=== PATIENT | female | born 1945 | race Caucasian/White ===

== ENCOUNTER → 2016-08-30 | Outpatient (CLI) | payer MEDICARE, OTHER ==
[~2016-08-30] MED LIST: ACYCLOVIR800 MG PO; ALDACTONE50 M1 PO; AMBIEN10 MG PO; ANASTROZOLE1 MG PO; ASPIRIN E.C. 8181 MG PO; BIOTIN 0.3 MG-21 TAB PO; CYANOCOBAL1000 MCG/1 IM; CYTOMEL 5MC5 MCG/TAB PO; GLUCOPHAGE PO; LEVOTHYROXINE PO; MAGNESIUM100 M1 PO; NORCO 325 MG-51 TA1 PO; VITAMIN D 50,1.25 MG PO; ZOCOR PO
== END ==
LOC: LAB 17:02
DX: I10 Essential (primary) hypertension (principal); E78.2 Mixed hyperlipidemia; E11.9 Type 2 diabetes mellitus without complications; E03.4 Atrophy of thyroid (acquired); E53.8 Deficiency of other specified B group vitamins; K90.89 Other intestinal malabsorption

== ENCOUNTER → 2016-11-07 | Outpatient (CLI) | payer MEDICARE, OTHER ==
[2016-01-12 10:45] VITALS: BP 125/86
== END ==
LOC: RAD 06:50
DX: M25.512 Pain in left shoulder (principal)

== ENCOUNTER → 2016-12-29 | Outpatient (CLI) | payer MEDICARE, OTHER ==
[2016-01-12 10:45] VITALS: BP 125/86
== END ==
LOC: LAB 14:50
DX: E11.9 Type 2 diabetes mellitus without complications (principal); M62.81 Muscle weakness (generalized); M79.604 Pain in right leg; E03.4 Atrophy of thyroid (acquired)

== ENCOUNTER 2017-01-05 16:45 | Emergency (ER) | payer MEDICARE, OTHER ==
[~2017-01-05 16:45] MED LIST changes: -ACYCLOVIR800 MG PO; -MAGNESIUM100 M1 PO; -NORCO 325 MG-51 TA1 PO
[2017-01-05] MEDS ORDERED: MAGNESIUM100 M1 PO (16:59)
[2017-01-05] MEDS ORDERED: ACYCLOVIR800 MG PO (18:01)
[2017-01-05] MEDS ORDERED: NORCO 325 MG-51 TA1 PO (18:01)
[2017-01-05 18:34] VITALS: BP 146/84
== END 2017-01-05 18:30 | disposition home or self-care (01) ==
LOC: ED 16:45
DX: B02.9 Zoster without complications (principal); R51 Headache; E11.9 Type 2 diabetes mellitus without complications; Z79.84 Long term (current) use of oral hypoglycemic drugs; I10 Essential (primary) hypertension; Z85.3 Personal history of malignant neoplasm of breast

== ENCOUNTER → 2017-01-26 | Outpatient (CLI) | payer MEDICARE, OTHER ==
[2017-01-05 18:34] VITALS: BP 146/84
[~2017-01-26] MED LIST changes: +ACYCLOVIR800 MG PO; +MAGNESIUM100 M1 PO; +NORCO 325 MG-51 TA1 PO
== END ==
LOC: LAB 14:01
DX: E03.4 Atrophy of thyroid (acquired) (principal)

== ENCOUNTER → 2017-04-26 | Outpatient (CLI) | payer MEDICARE, OTHER | LOC: RAD 09:00 | DX: M19.012 Primary osteoarthritis, left shoulder (principal); S43.102A Unspecified dislocation of left acromioclavicular joint, initial encounter; M85.812 Other specified disorders of bone density and structure, left shoulder; Z98.890 Other specified postprocedural states ==

== ENCOUNTER → 2017-05-23 | Outpatient (CLI) | payer MEDICARE, OTHER | LOC: LAB 15:08 | DX: E11.9 Type 2 diabetes mellitus without complications (principal) ==

== ENCOUNTER → 2017-10-25 | Outpatient (CLI) | payer MEDICARE, OTHER | LOC: LAB 10:10 | DX: L02.411 Cutaneous abscess of right axilla (principal); Z88.1 Allergy status to other antibiotic agents ==

== ENCOUNTER → 2018-03-19 | Outpatient (CLI) | payer MEDICARE, OTHER ==
[2018-03-19 15:03] LABS: EOS # 0.2 (0.04-0.40); EOS % 2.6 % (1.0-5.0); HEMATOCRIT 38.8 % (37.0-47.0); LYMPH# 2.5 (1.50-4.00); MEAN CELL VOLUME 94 fl (78-100); MEAN CORPUSCULAR HEMOGLOBIN 31 pg (27-31); MEAN CORPUSCULAR HGB CONC 34 g/dL (33-37); MEAN PLATELET VOLUME 9.6 fl (7.4-10.4); MONO # 0.7 (0.20-0.80); NEU # 5.7 (1.40-6.50); PLATELET COUNT 223 K/mm3 (130-400); RED BLOOD COUNT 4.15 M/mm3 (4.10-5.30); RED CELL DISTRIBUTION WIDTH 14.1 % (11.5-14.5); WHITE BLOOD COUNT 9.2 K/mm3 (4.8-10.8)
[2018-03-19 16:01] LABS: URINE APPEARANCE HAZY; URINE BILIRUBIN NEGATIVE (NEGATIVE); URINE BLOOD NEGATIVE (NEGATIVE); URINE COLOR YELLOW; URINE GLUCOSE NEGATIVE (NEGATIVE); URINE KETONE NEGATIVE (NEGATIVE); URINE LEUKOCYTE ESTERASE 1+ (NEGATIVE); URINE NITRATE NEGATIVE (NEGATIVE); URINE PROTEIN(semi-quant) NEGATIVE (NEGATIVE); URINE UROBILINOGEN NORMAL (NORMAL)
[2018-03-19 21:33] LABS: ERYTHROCYTE SEDIMENTATION RATE 60 mm/hr (0-30)
[2018-03-19 21:42] LABS: ALBUMIN 4.1 g/dL (3.5-5.0); CALCIUM 9.5 mg/dL (8.4-10.2); POTASSIUM 4.2 mmol/L (3.6-5.0); TOTAL BILIRUBIN 0.4 mg/dL (0.2-1.3); TOTAL PROTEIN 7.2 g/dL (6.3-8.2)
== END ==
LOC: LAB 14:22
PROVIDERS: Internal Medicine
DX: I10 Essential (primary) hypertension (principal); E11.9 Type 2 diabetes mellitus without complications; E53.8 Deficiency of other specified B group vitamins; G62.9 Polyneuropathy, unspecified

== ENCOUNTER 2018-04-19 13:14 | Outpatient (RCR) | payer MEDICARE, OTHER | END 2018-04-20 14:02 | LOC: OPPGERO 13:14 | DX: F32.9 Major depressive disorder, single episode, unspecified (principal); F41.1 Generalized anxiety disorder; Z72.89 Other problems related to lifestyle; Z63.5 Disruption of family by separation and divorce; Z63.4 Disappearance and death of family member; R45.851 Suicidal ideations; I10 Essential (primary) hypertension; I48.91 Unspecified atrial fibrillation; I25.10 Atherosclerotic heart disease of native coronary artery without angina pectoris; E11.9 Type 2 diabetes mellitus without complications; E78.5 Hyperlipidemia, unspecified; M19.90 Unspecified osteoarthritis, unspecified site; M10.9 Gout, unspecified; E55.9 Vitamin D deficiency, unspecified; Z79.01 Long term (current) use of anticoagulants; Z79.84 Long term (current) use of oral hypoglycemic drugs; Z79.899 Other long term (current) drug therapy ==

== ENCOUNTER 2018-04-23 09:15 | Outpatient (RCR) | payer MEDICARE, OTHER | END 2018-05-23 14:19 | LOC: OPPGERO 09:15 | DX: F32.9 Major depressive disorder, single episode, unspecified (principal); F41.1 Generalized anxiety disorder; Z60.9 Problem related to social environment, unspecified; Z63.8 Other specified problems related to primary support group; E11.9 Type 2 diabetes mellitus without complications; E03.9 Hypothyroidism, unspecified; I10 Essential (primary) hypertension; E78.5 Hyperlipidemia, unspecified; M19.90 Unspecified osteoarthritis, unspecified site; E53.8 Deficiency of other specified B group vitamins; K50.90 Crohn's disease, unspecified, without complications; I83.90 Asymptomatic varicose veins of unspecified lower extremity; R53.83 Other fatigue; Z79.84 Long term (current) use of oral hypoglycemic drugs; Z79.82 Long term (current) use of aspirin; Z79.891 Long term (current) use of opiate analgesic; Z79.899 Other long term (current) drug therapy; Z90.13 Acquired absence of bilateral breasts and nipples; Z85.3 Personal history of malignant neoplasm of breast; Z79.811 Long term (current) use of aromatase inhibitors ==

== ENCOUNTER 2018-05-24 09:56 | Outpatient (RCR) | payer MEDICARE, OTHER | END 2018-06-22 15:20 | LOC: OPPGERO 09:56 | DX: F33.1 Major depressive disorder, recurrent, moderate (principal); F41.1 Generalized anxiety disorder; Z60.8 Other problems related to social environment; Z63.79 Other stressful life events affecting family and household; Z63.4 Disappearance and death of family member; E11.9 Type 2 diabetes mellitus without complications; E03.9 Hypothyroidism, unspecified; G60.0 Hereditary motor and sensory neuropathy; K50.90 Crohn's disease, unspecified, without complications; E53.8 Deficiency of other specified B group vitamins; K21.9 Gastro-esophageal reflux disease without esophagitis; I10 Essential (primary) hypertension; E78.5 Hyperlipidemia, unspecified; M19.90 Unspecified osteoarthritis, unspecified site; E66.9 Obesity, unspecified; F07.81 Postconcussional syndrome; I83.90 Asymptomatic varicose veins of unspecified lower extremity; Z79.84 Long term (current) use of oral hypoglycemic drugs; Z79.82 Long term (current) use of aspirin; Z79.899 Other long term (current) drug therapy; Z90.13 Acquired absence of bilateral breasts and nipples; Z85.3 Personal history of malignant neoplasm of breast ==

== ENCOUNTER 2018-08-01 08:55 | Outpatient (RCR) | payer MEDICARE, OTHER | END 2018-08-23 13:34 | LOC: OPPGERO 08:55 | DX: F33.1 Major depressive disorder, recurrent, moderate (principal); F41.1 Generalized anxiety disorder; G31.84 Mild cognitive impairment of uncertain or unknown etiology; E11.9 Type 2 diabetes mellitus without complications; E53.8 Deficiency of other specified B group vitamins; E03.9 Hypothyroidism, unspecified; G62.89 Other specified polyneuropathies; K50.90 Crohn's disease, unspecified, without complications; K21.9 Gastro-esophageal reflux disease without esophagitis; E78.5 Hyperlipidemia, unspecified; M19.90 Unspecified osteoarthritis, unspecified site; E66.9 Obesity, unspecified; F07.81 Postconcussional syndrome; Z79.811 Long term (current) use of aromatase inhibitors; Z79.84 Long term (current) use of oral hypoglycemic drugs; Z79.82 Long term (current) use of aspirin; Z79.899 Other long term (current) drug therapy; Z85.3 Personal history of malignant neoplasm of breast; Z90.13 Acquired absence of bilateral breasts and nipples ==

== ENCOUNTER → 2018-08-13 | Outpatient (CLI) | payer MEDICARE, OTHER ==
[2018-08-13 11:03] LABS: EOS # 0.2 (0.04-0.40); EOS % 2.2 % (1.0-5.0); HEMATOCRIT 39.8 % (37.0-47.0); HEMOGLOBIN 13.2 g/dL (12.5-16.0); LYMPH# 2.2 (1.50-4.00); MEAN CELL VOLUME 93 fl (78-100); MEAN CORPUSCULAR HEMOGLOBIN 31 pg (27-31); MEAN CORPUSCULAR HGB CONC 33 g/dL (33-37); MEAN PLATELET VOLUME 8.8 fl (7.4-10.4); MONO # 0.6 (0.20-0.80); NEU # 4.7 (1.40-6.50); PLATELET COUNT 189 K/mm3 (130-400); RED BLOOD COUNT 4.26 M/mm3 (4.10-5.30); RED CELL DISTRIBUTION WIDTH 13.4 % (11.5-14.5); WHITE BLOOD COUNT 7.7 K/mm3 (4.8-10.8)
[2018-08-13 11:24] LABS: ALBUMIN 4.5 g/dL (3.5-5.0); CALCIUM 9.9 mg/dL (8.4-10.2); POTASSIUM 4.4 mmol/L (3.6-5.0); TOTAL BILIRUBIN 0.7 mg/dL (0.2-1.3)
== END ==
LOC: LAB 10:48
PROVIDERS: Internal Medicine
DX: E11.9 Type 2 diabetes mellitus without complications (principal); I10 Essential (primary) hypertension; E03.9 Hypothyroidism, unspecified

== ENCOUNTER 2018-08-24 08:57 | Outpatient (RCR) | payer MEDICARE, OTHER | END 2018-09-20 13:46 | LOC: OPPGERO 08:57 | DX: F33.1 Major depressive disorder, recurrent, moderate (principal); F41.1 Generalized anxiety disorder; G31.84 Mild cognitive impairment of uncertain or unknown etiology; E11.9 Type 2 diabetes mellitus without complications; E03.9 Hypothyroidism, unspecified; G62.89 Other specified polyneuropathies; C50.919 Malignant neoplasm of unspecified site of unspecified female breast; K50.90 Crohn's disease, unspecified, without complications; E53.8 Deficiency of other specified B group vitamins; K21.9 Gastro-esophageal reflux disease without esophagitis; E78.5 Hyperlipidemia, unspecified; M19.90 Unspecified osteoarthritis, unspecified site; E66.9 Obesity, unspecified; F07.81 Postconcussional syndrome; I83.90 Asymptomatic varicose veins of unspecified lower extremity; Z79.82 Long term (current) use of aspirin; Z79.84 Long term (current) use of oral hypoglycemic drugs; Z79.899 Other long term (current) drug therapy; Z63.9 Problem related to primary support group, unspecified; Z63.8 Other specified problems related to primary support group ==

== ENCOUNTER 2018-09-21 14:18 | Outpatient (RCR) | payer MEDICARE, OTHER | END 2018-10-19 15:25 | LOC: OPPGERO 14:18 | DX: F33.42 Major depressive disorder, recurrent, in full remission (principal); E11.9 Type 2 diabetes mellitus without complications; E03.9 Hypothyroidism, unspecified; K21.9 Gastro-esophageal reflux disease without esophagitis; I10 Essential (primary) hypertension; E78.5 Hyperlipidemia, unspecified; M19.90 Unspecified osteoarthritis, unspecified site; E53.8 Deficiency of other specified B group vitamins; C50.919 Malignant neoplasm of unspecified site of unspecified female breast; K50.90 Crohn's disease, unspecified, without complications; K58.9 Irritable bowel syndrome, unspecified; E66.9 Obesity, unspecified ==